=== PATIENT | female | born 1980 | race Caucasian/White ===

== ENCOUNTER 2018-06-27 15:38 | Emergency (ER) | payer OTHER ==
[~2018-06-27] VITALS: Ht 160 cm; Wt 62.1 kg
[2018-06-27 15:43] VITALS: BP 133/79; Ht 160 cm; Wt 62.1 kg
== END 2018-06-27 17:04 | disposition home or self-care (01) ==
LOC: ED 15:38
DX: S61.213A Laceration without foreign body of left middle finger without damage to nail, initial encounter (principal); W26.8XXA Contact with other sharp object(s), not elsewhere classified, initial encounter; Y93.89 Activity, other specified; Y92.89 Other specified places as the place of occurrence of the external cause; Y99.8 Other external cause status
CPT/HCPCS: 90715; J2001